=== PATIENT | female | born 1955 | race Caucasian/White ===

== ENCOUNTER 2018-03-24 21:54 | Inpatient (IN) | payer MEDICARE, MEDICAID ==
[~2018-03-24] VITALS: Ht 165.1 cm; Wt 122.7 kg
[2018-03-24] MEDS ORDERED: normal saline 1000ML IV soln IVB ONE (22:05)
[2018-03-24] MEDS ORDERED: normal saline 1000ML IV soln IV ONE (22:10)
[2018-03-24 22:23] LABS: BASOPHILS # (AUTO) 0.1 X10'3 (0-0.2); BASOPHILS % (AUTO) 0.3 % (0-1); EOSINOPHILS % (AUTO) 0 % (0-6); HEMATOCRIT 37.4 % (35.0-45.0); HEMOGLOBIN 12.5 g/dl (12.0-16.0); LYMPHOCYTES # (AUTO) 2.2 X10'3 (1.1-4.8); LYMPHOCYTES % (AUTO) 10.5 % (21-51); MEAN CORPUSCULAR HEMOGLOBIN 27.2 PG (27.0-31.0); MEAN CORPUSCULAR HGB CONC 33.4 % (33.0-36.5); MEAN CORPUSCULAR VOLUME 81.5 FL (78-98); MEAN PLATELET VOLUME 10.5 FL (7.4-10.4); MONOCYTES # (AUTO) 0.8 X10'3 (0-0.9); MONOCYTES % (AUTO) 3.8 % (2-12); NEUTROPHILS # (AUTO) 18.3 X10'3 (1.8-7.7); NEUTROPHILS % (AUTO) 85.4 % (42-75); PLATELET COUNT 261 X10'3 (140-440); RED BLOOD COUNT 4.59 X10'6 (4.20-5.60); RED CELL DISTRIBUTION WIDTH 15.6 % (11.5-14.5); WHITE BLOOD COUNT 21.4 X10'3 (4.5-11.0)
[2018-03-24 22:25] LABS: PARTIAL THROMBOPLASTIN TIME 25 SECONDS (22-32); PROTHROMBIN TIME 10.4 SECONDS (9.0-12.0)
[2018-03-24 22:27] LABS: ALANINE AMINOTRANSFERASE 68 U/L (12-78); ALBUMIN 2.7 G/DL (3.4-5.0); ALBUMIN/GLOBULIN RATIO 0.7 (1.1-1.5); ALKALINE PHOSPHATASE 161 IU/L (46-116); ANION GAP 9 (8-16); ASPARTATE AMINO TRANSFERASE 43 U/L (10-37); BILIRUBIN,TOTAL 0.2 MG/DL (0.1-1.0); BLOOD UREA NITROGEN 26 MG/DL (7-18); CALCIUM 7.4 MG/DL (8.5-10.1); CHLORIDE 108 MMOL/L (99-107); GLUCOSE 156 MG/DL (70-104); POTASSIUM 3.4 MMOL/L (3.5-5.1); SODIUM 143 MMOL/L (135-145); TOTAL CARBON DIOXIDE 26.3 MMOL/L (24-32); TOTAL PROTEIN 6.4 G/DL (6.4-8.2); eGFR 25 ML/MIN
[2018-03-24 22:35] LABS: CLARITY,URINE CLOUDY (Clear); COLOR,URINE YELLOW (Yellow); GLUCOSE, URINE NEGATIVE (Neg); KETONES,URINE NEGATIVE (Neg); LEUKOCYTE ESTERASE ,URINE SMALL (Neg); NITRITES, URINE NEGATIVE (Neg); OCCULT BLOOD,URINE MODERATE (Neg); PH,URINE 5.5 (4.8-8.0); PROTEIN,URINE 30 mg/dl (Neg); UROBILINOGEN,URINE 0.2 E.U/dL (0.2-1.0)
[2018-03-24 22:37] LABS: MAGNESIUM 2.1 MG/DL (1.5-2.4)
[2018-03-24 22:41] LABS: URINE HCG NEGATIVE (NEG)
[2018-03-24 22:47] LABS: UA COLLECTION TYPE FOLEY CATH
[2018-03-24 22:48] LABS: AMORPHOUS URATES 1+; BACTERIA,URINE FEW /HPF (Neg); COARSE GRANULAR CAST 0-3 /LPF (NEGATIVE); HYALINE CASTS 0-3 /LPF (NEGATIVE); MUCUS STRANDS FEW /LPF (Neg); RBC,URINE 0-2 /HPF (0-2); SQUAMOUS EPITHELIAL CELL,UR MODERATE /LPF (FEW)
[2018-03-24] MEDS: meropenem inj 1 GM in normal saline 100ml IV soln 100 ML IV SCH (22:54)
[2018-03-24 23:24] LABS: TOTAL CELLS COUNTED 100
[2018-03-24 23:25] LABS: ANISOCYTOSIS 1+; PLATELET ESTIMATE NORMAL
[2018-03-25] MEDS ORDERED: VERA120T7 PO (00:44)
[2018-03-25] MEDS ORDERED: NITR0.4T51 SL (00:44)
[2018-03-25] MEDS ORDERED: MORP30CA16 PO (00:44)
[2018-03-25] MEDS ORDERED: ALBU8.5H8 INH (00:44)
[2018-03-25] MEDS ORDERED: OXYC-658 PO (00:44)
[2018-03-25] MEDS ORDERED: ESOM20CA PO (00:44)
[2018-03-25] MEDS ORDERED: VALS80TA2 PO (00:44)
[2018-03-25] MEDS ORDERED: ZOC5T PO (00:44)
[2018-03-25] MEDS ORDERED: AZIT-63 PO (00:44)
[2018-03-25] MEDS ORDERED: mag hydrox/Alum hydrox/simeth 30ml oral suspension PO PRN (01:10)
[2018-03-25] MEDS ORDERED: acetaminophen 325mg tablet PO PRN (01:10)
[2018-03-25] MEDS ORDERED: magnesium hydroxide 30ml (MOM) UD suspension PO PRN (01:10)
[2018-03-25] MEDS ORDERED: ondansetron/PF 4mg/2ml inj IV PRN (01:10)
[2018-03-25] MEDS ORDERED: ESCI5TAB PO (01:16)
[2018-03-25] MEDS ORDERED: TOPI25TA49 PO (01:16)
[2018-03-25] MEDS ORDERED: nitroGLYCERIN 0.4mg SUBLingual tab SL PRN (01:25)
[2018-03-25] MEDS ORDERED: albuterol 2.5 MG/3 ML nebule NEB PRN (01:35)
[2018-03-25] MEDS: normal saline 1000ml 1,000 ML IV SCH ×3 (01:58→22:27)
[2018-03-25 02:00] VITALS: BP 91/53
[2018-03-25] MEDS: CefTRIAXone/D5W-Rocephin 1gm 50 ML IV SCH (02:36)
[2018-03-25] MEDS ORDERED: magnesium 1gm/100ml D5W IVPB 100 ML IV PRN (02:50)
[2018-03-25] MEDS ORDERED: magnesium Cl slow-release 64mg tablet PO PRN (02:50)
[2018-03-25] MEDS ORDERED: potassium Cl 20 mEq SR tablet PO PRN (02:50)
[2018-03-25] MEDS ORDERED: magnesium 4gm in 100ml NS 100 ML IV PRN (02:50)
[2018-03-25] MEDS ORDERED: potassium Cl 40MEQ/NS 500ml 500 ML IV PRN ×2 (02:50)
[2018-03-25 03:00] VITALS: BP 107/61
[2018-03-25] MEDS: nystatin 15 GM powder TP SCH ×4 (03:17→22:27)
[2018-03-25] MEDS: potassium Cl 20 mEq SR tablet PO PRN ×3 (03:18→20:51)
[2018-03-25] MEDS ORDERED: pneumococcal 23-VAL P-sac vacc 25 mcg/0.5ml vial IMVAC ONE (06:30)
[2018-03-25] MEDS: pantoprazole 40mg Tablet.DR PO SCH (07:35)
[2018-03-25] MEDS: CITALOpram 10mg tablet PO SCH (07:35)
[2018-03-25] MEDS: heparin, porcine 5000 units/ml vial SQ SCH ×2 (07:36→20:52)
[2018-03-25 08:46] VITALS: BP 108/66
[2018-03-25] MEDS: meropenem inj 1 GM in normal saline 100ml IV soln 100 ML IV SCH ×2 (09:09→15:58)
[2018-03-25 11:00] VITALS: BP 123/63
[2018-03-25 15:12] LABS: ALANINE AMINOTRANSFERASE 44 U/L (12-78); ALBUMIN 2.3 G/DL (3.4-5.0); ALBUMIN/GLOBULIN RATIO 0.7 (1.1-1.5); ALKALINE PHOSPHATASE 143 IU/L (46-116); ANION GAP 5 (8-16); ASPARTATE AMINO TRANSFERASE 24 U/L (10-37); BILIRUBIN,TOTAL 0.2 MG/DL (0.1-1.0); BLOOD UREA NITROGEN 17 MG/DL (7-18); BUN/CREATININE RATIO 16.3 (6.6-38.0); CALCIUM 7.6 MG/DL (8.5-10.1); CHLORIDE 106 MMOL/L (99-107); CREATININE 1.04 MG/DL (0.40-0.90); GLUCOSE 145 MG/DL (70-104); POTASSIUM 3.2 MMOL/L (3.5-5.1); SODIUM 140 MMOL/L (135-145); TOTAL CARBON DIOXIDE 28.6 MMOL/L (24-32); TOTAL PROTEIN 5.8 G/DL (6.4-8.2); eGFR 54 ML/MIN
[2018-03-25 15:31] LABS: BASOPHILS % (AUTO) 0.4 % (0-1); EOSINOPHILS # (AUTO) 0.3 X10'3 (0-0.9); EOSINOPHILS % (AUTO) 4.2 % (0-6); HEMATOCRIT 33.4 % (35.0-45.0); HEMOGLOBIN 11.2 g/dl (12.0-16.0); LYMPHOCYTES # (AUTO) 2.2 X10'3 (1.1-4.8); LYMPHOCYTES % (AUTO) 26.9 % (21-51); MEAN CORPUSCULAR HGB CONC 33.5 % (33.0-36.5); MEAN CORPUSCULAR VOLUME 83.6 FL (78-98); MEAN PLATELET VOLUME 10.6 FL (7.4-10.4); MONOCYTES # (AUTO) 0.6 X10'3 (0-0.9); MONOCYTES % (AUTO) 7.2 % (2-12); NEUTROPHILS % (AUTO) 61.3 % (42-75); PLATELET COUNT 171 X10'3 (140-440); RED CELL DISTRIBUTION WIDTH 14.5 % (11.5-14.5); WHITE BLOOD COUNT 8.1 X10'3 (4.5-11.0)
[2018-03-25 18:00] VITALS: BP 120/72
[2018-03-25] MEDS ORDERED: topiramate 25mg tablet PO SCH (21:00)
[2018-03-25] MEDS ORDERED: atorvastatin 20mg tablet PO SCH (21:00)
[2018-03-25 22:00] VITALS: BP 152/77
[2018-03-26] MEDS: meropenem inj 1 GM in normal saline 100ml IV soln 100 ML IV SCH ×2 (00:11→07:32)
[2018-03-26] MEDS: potassium Cl 20 mEq SR tablet PO PRN ×2 (01:13→05:42)
[2018-03-26] MEDS: CefTRIAXone/D5W-Rocephin 1gm 50 ML IV SCH (02:10)
[2018-03-26 03:00] VITALS: BP 149/86
[2018-03-26 05:52] LABS: BASOPHILS # (AUTO) 0.1 X10'3 (0-0.2); EOSINOPHILS # (AUTO) 0.3 X10'3 (0-0.9); EOSINOPHILS % (AUTO) 6.1 % (0-6); HEMATOCRIT 33.5 % (35.0-45.0); HEMOGLOBIN 11.2 g/dl (12.0-16.0); LYMPHOCYTES # (AUTO) 1.7 X10'3 (1.1-4.8); LYMPHOCYTES % (AUTO) 29.9 % (21-51); MEAN CORPUSCULAR HEMOGLOBIN 27.1 PG (27.0-31.0); MEAN CORPUSCULAR HGB CONC 33.4 % (33.0-36.5); MEAN CORPUSCULAR VOLUME 81.2 FL (78-98); MEAN PLATELET VOLUME 10.9 FL (7.4-10.4); MONOCYTES # (AUTO) 0.5 X10'3 (0-0.9); MONOCYTES % (AUTO) 8.3 % (2-12); NEUTROPHILS % (AUTO) 54.7 % (42-75); PLATELET COUNT 142 X10'3 (140-440); RED BLOOD COUNT 4.13 X10'6 (4.20-5.60); RED CELL DISTRIBUTION WIDTH 14.8 % (11.5-14.5); WHITE BLOOD COUNT 5.5 X10'3 (4.5-11.0)
[2018-03-26 06:11] LABS: ALANINE AMINOTRANSFERASE 41 U/L (12-78); ALBUMIN 2.2 G/DL (3.4-5.0); ALBUMIN/GLOBULIN RATIO 0.6 (1.1-1.5); ALKALINE PHOSPHATASE 133 IU/L (46-116); ANION GAP 6 (8-16); ASPARTATE AMINO TRANSFERASE 16 U/L (10-37); BILIRUBIN,TOTAL 0.1 MG/DL (0.1-1.0); BLOOD UREA NITROGEN 13 MG/DL (7-18); BUN/CREATININE RATIO 13.3 (6.6-38.0); CALCIUM 7.6 MG/DL (8.5-10.1); CHLORIDE 107 MMOL/L (99-107); CREATININE 0.98 MG/DL (0.40-0.90); GLUCOSE 127 MG/DL (70-104); MAGNESIUM 1.8 MG/DL (1.5-2.4); POTASSIUM 3.3 MMOL/L (3.5-5.1); SODIUM 140 MMOL/L (135-145); TOTAL CARBON DIOXIDE 26.9 MMOL/L (24-32); TOTAL PROTEIN 5.7 G/DL (6.4-8.2); eGFR 57 ML/MIN
[2018-03-26 06:51] VITALS: BP 156/93
[2018-03-26] MEDS: normal saline 1000ml 1,000 ML IV SCH ×2 (07:08→10:43)
[2018-03-26 07:14] LABS: LARGE PLATELETS FEW; PLATELET ESTIMATE DECREASED
[2018-03-26] MEDS: pantoprazole 40mg Tablet.DR PO SCH (07:31)
[2018-03-26] MEDS: heparin, porcine 5000 units/ml vial SQ SCH (07:32)
[2018-03-26] MEDS: nystatin 15 GM powder TP SCH ×2 (07:32→12:25)
[2018-03-26] MEDS: CITALOpram 10mg tablet PO SCH (07:32)
[2018-03-26 11:00] VITALS: BP 154/89
[2018-03-26] MEDS ORDERED: CEFD300C3 PO (12:15)
[2018-03-26 15:00] VITALS: BP 153/93
[2018-03-26 19:00] VITALS: BP 148/88
[2018-03-26] MEDS ORDERED: lactobacillus rhamnosus 10,000 MMU CELLS/CAPSULE PO SCH (20:00)
== END 2018-03-26 21:01 | disposition home health service (06) | DRG 871 ==
LOC: ER 21:55 → ED HOLD 03-25 01:08 → PCU 3S 03-25 02:10
PROVIDERS: ADMIT Internal Medicine; ATTEND Family Medicine
PROC: 3E0234Z Introduction of Serum, Toxoid and Vaccine into Muscle, Percutaneous Approach (ICD-10-PCS; principal; 2018-03-25)
DX: A41.9 Sepsis, unspecified organism (principal); G92 Toxic encephalopathy; N17.0 Acute kidney failure with tubular necrosis; T40.2X1A Poisoning by other opioids, accidental (unintentional), initial encounter; F11.10 Opioid abuse, uncomplicated; E78.00 Pure hypercholesterolemia, unspecified; G35 Multiple sclerosis; G89.29 Other chronic pain; F32.9 Major depressive disorder, single episode, unspecified; E87.6 Hypokalemia; E03.9 Hypothyroidism, unspecified; E78.5 Hyperlipidemia, unspecified; I10 Essential (primary) hypertension; J45.909 Unspecified asthma, uncomplicated; Z96.651 Presence of right artificial knee joint; Z88.0 Allergy status to penicillin; Z88.1 Allergy status to other antibiotic agents; Z88.6 Allergy status to analgesic agent; Z88.8 Allergy status to other drugs, medicaments and biological substances; Z79.899 Other long term (current) drug therapy; Z23 Encounter for immunization; Y92.89 Other specified places as the place of occurrence of the external cause
CPT/HCPCS: 36415; 71045; 71250; 74176; 80053; 81001; 81025; 83605; 83735; 84145; 84443; 85025; 85610; 85730; 87040; 87070; 87088; 90471; 90732; 93005; 96360; 97110; 97162; 97530; 99291; J0696; J1644; J2185; J7030

== ENCOUNTER 2024-06-07 19:19 | Emergency (ER) | payer BC, MEDICAID ==
[~2024-06-07] VITALS: Ht 162.6 cm; Wt 123.2 kg
[~2024-06-07 19:19] MED LIST: ALBU8.5H17 INH; ESCI5TAB PO; ESOM20CA PO; MORP30CA16 PO; NITR0.4T51 SL; OXYC-658 PO; SIMV5TAB58 PO; TOPI25TA49 PO
[2024-06-07 20:09] LABS: BASOPHILS % (AUTO) 0.1 % (0-1); EOSINOPHILS # (AUTO) 0.2 X10'3 (0-0.9); EOSINOPHILS % (AUTO) 2.8 % (0-6); HEMOGLOBIN 11.4 g/dl (12.0-16.0); LYMPHOCYTES # (AUTO) 0.3 X10'3 (1.1-4.8); LYMPHOCYTES % (AUTO) 3.9 % (21-51); MEAN CORPUSCULAR HEMOGLOBIN 24.7 PG (27.0-31.0); MEAN CORPUSCULAR HGB CONC 31.6 g/dL (33.0-36.5); MEAN CORPUSCULAR VOLUME 78.1 FL (78-98); MEAN PLATELET VOLUME 9.2 FL (7.4-10.4); MONOCYTES # (AUTO) 0.5 X10'3 (0-0.9); MONOCYTES % (AUTO) 8.3 % (2-12); NEUTROPHILS # (AUTO) 5.5 X10'3 (1.8-7.7); NEUTROPHILS % (AUTO) 84.9 % (42-75); PLATELET COUNT 205 X10'3 (140-440); RED BLOOD COUNT 4.61 X10'6 (4.20-5.60); RED CELL DISTRIBUTION WIDTH 16.7 % (11.5-14.5); WHITE BLOOD COUNT 6.5 X10'3 (4.5-11.0)
[2024-06-07 20:17] LABS: ALANINE AMINOTRANSFERASE 69 U/L (12-78); ALBUMIN 3.3 G/DL (3.4-5.0); ALBUMIN/GLOBULIN RATIO 0.8 (1.1-1.5); ALKALINE PHOSPHATASE 217 IU/L (46-116); ANION GAP 9 (8-16); ASPARTATE AMINO TRANSFERASE 54 U/L (10-37); BILIRUBIN,TOTAL 0.3 MG/DL (0.1-1.0); BLOOD UREA NITROGEN 11 MG/DL (7-18); BUN/CREATININE RATIO 11.5 (10.0-20.0); CALCIUM 8.7 MG/DL (8.5-10.1); CHLORIDE 94 MMOL/L (99-107); CREATININE 0.96 MG/DL (0.40-0.90); GLUCOSE 389 MG/DL (70-104); POTASSIUM 3.8 MMOL/L (3.5-5.1); SODIUM 136 MMOL/L (135-145); TOTAL CARBON DIOXIDE 33.1 MMOL/L (24-32); TOTAL PROTEIN 7.3 G/DL (6.4-8.2); eCRCL 48 ML/MIN; eGFR 58 ML/MIN
[2024-06-07 20:25] LABS: PRO BRAIN NATRIURETIC PEPTIDE 87 PG/ML (0-125)
[2024-06-07 20:42] LABS: D-DIMER 0.54 MG/L FEU (0-0.50)
[2024-06-07] MEDS: insulin regular, human 10 units/0.1 ml syringe SQ ONE (20:42)
[2024-06-07] MEDS ORDERED: iohexol 350MG/ML 100ml bottle IV ONE (21:24)
[2024-06-07 23:19] LABS: BILIRUBIN,URINE NEGATIVE (Neg); CLARITY,URINE CLOUDY (Clear); COLOR,URINE YELLOW (Yellow); GLUCOSE, URINE >=1000 mg/dl (Neg); KETONES,URINE NEGATIVE (Neg); LEUKOCYTE ESTERASE ,URINE NEGATIVE (Neg); NITRITES, URINE POSITIVE (Neg); OCCULT BLOOD,URINE NEGATIVE (Neg); PH,URINE 6.5 (4.8-8.0); PROTEIN,URINE NEGATIVE (Neg); UROBILINOGEN,URINE 0.2 E.U/dL (0.2-1.0)
[2024-06-07 23:20] LABS: UA COLLECTION TYPE NON-SPECIFIED
[2024-06-07] MEDS: HYDROcodone/acetaminophen 10/325mg tab PO ONE (23:23)
[2024-06-07 23:25] LABS: BACTERIA,URINE 3+ /HPF (Neg); RBC,URINE 0-2 /HPF (0-2); SQUAMOUS EPITHELIAL CELL,UR FEW /LPF (FEW); WBC,URINE 0-4 /HPF (0-4)
[2024-06-07] MEDS ORDERED: CEFU250T95 PO (23:34)
[2024-06-07] MEDS: CefTRIAXone/D5W-Rocephin 1gm 50 ML IV ONE (23:38)
[2024-06-08 00:06] VITALS: BP 168/96; PULSE 87; RESP 18; TEMP 98.9; O2SAT 100
== END 2024-06-07 23:58 | disposition home or self-care (01) ==
LOC: ER 19:20
DX: E11.65 Type 2 diabetes mellitus with hyperglycemia (principal); E78.00 Pure hypercholesterolemia, unspecified; G89.29 Other chronic pain; M54.9 Dorsalgia, unspecified; J45.909 Unspecified asthma, uncomplicated; M19.90 Unspecified osteoarthritis, unspecified site; I25.2 Old myocardial infarction; N39.0 Urinary tract infection, site not specified; B97.89 Other viral agents as the cause of diseases classified elsewhere; J12.9 Viral pneumonia, unspecified; I10 Essential (primary) hypertension; Z88.0 Allergy status to penicillin; Z88.8 Allergy status to other drugs, medicaments and biological substances; Z79.899 Other long term (current) drug therapy; Z98.890 Other specified postprocedural states; Z20.822 Contact with and (suspected) exposure to COVID-19
CPT/HCPCS: 36415; 71045; 71275; 80053; 81001; 82948; 83880; 84145; 84484; 85025; 85379; 87077; 87088; 87186; 87811; 93005; 96365; 96372; 99285; J0696; J1815; Q9967; A4615

== ENCOUNTER 2024-11-25 20:59 | Emergency (ER) | payer MEDICARE, MEDICAID ==
[~2024-11-25] VITALS: Ht 162.6 cm; Wt 113.2 kg
[~2024-11-25 20:59] MED LIST changes: +CLOP75TA34 PO; -ESOM20CA PO; -NITR0.4T51 SL; -TOPI25TA49 PO; +[UNRECOGNIZED DRUG - CODE] PO
[2024-11-25] MEDS: phenylephrine 1% (X-tra strg) 15ml nasal spray NS ONE (23:47)
[2024-11-25 23:53] VITALS: BP 128/62; PULSE 70; RESP 18; TEMP 98.6; O2SAT 99
== END 2024-11-25 23:55 | disposition home or self-care (01) ==
LOC: ER 21:00
DX: R04.0 Epistaxis (principal); E78.00 Pure hypercholesterolemia, unspecified; E11.9 Type 2 diabetes mellitus without complications; I25.2 Old myocardial infarction; I10 Essential (primary) hypertension; M19.90 Unspecified osteoarthritis, unspecified site; G89.29 Other chronic pain; M54.9 Dorsalgia, unspecified; J44.9 Chronic obstructive pulmonary disease, unspecified; J45.909 Unspecified asthma, uncomplicated; Z88.0 Allergy status to penicillin; Z88.6 Allergy status to analgesic agent; Z88.5 Allergy status to narcotic agent; Z88.8 Allergy status to other drugs, medicaments and biological substances; Z98.890 Other specified postprocedural states
CPT/HCPCS: 99284; A6402; A6449

== ENCOUNTER 2024-11-26 23:46 | Inpatient (IN) | payer MEDICARE, MEDICAID ==
[~2024-11-26] VITALS: Ht 162.6 cm; Wt 118.8 kg
[2024-11-27] VITALS (11 sets, daily range): BP systolic 102–173; BP diastolic 58–89; PULSE 72–99; RESP 16–27; TEMP 97.5–98.6; O2SAT 95–100
[2024-11-27 00:15] LABS: BASOPHILS % (AUTO) 0.3 % (0-1); EOSINOPHILS # (AUTO) 0.2 X10'3 (0-0.9); HEMATOCRIT 24.5 % (35.0-45.0); HEMOGLOBIN 7.9 g/dl (12.0-16.0); LYMPHOCYTES # (AUTO) 0.8 X10'3 (1.1-4.8); LYMPHOCYTES % (AUTO) 6.9 % (21-51); MEAN CORPUSCULAR HEMOGLOBIN 25.3 PG (27.0-31.0); MEAN CORPUSCULAR HGB CONC 32.3 g/dL (33.0-36.5); MEAN CORPUSCULAR VOLUME 78.3 FL (78-98); MEAN PLATELET VOLUME 9.7 FL (7.4-10.4); MONOCYTES # (AUTO) 0.7 X10'3 (0-0.9); MONOCYTES % (AUTO) 6.5 % (2-12); NEUTROPHILS # (AUTO) 9.7 X10'3 (1.8-7.7); NEUTROPHILS % (AUTO) 84.3 % (42-75); PLATELET COUNT 276 X10'3 (140-440); RED BLOOD COUNT 3.13 X10'6 (4.20-5.60); RED CELL DISTRIBUTION WIDTH 17.2 % (11.5-14.5); WHITE BLOOD COUNT 11.5 X10'3 (4.5-11.0)
[2024-11-27] MEDS ORDERED: AMIT25TA10 PO (00:32)
[2024-11-27] MEDS ORDERED: MIRA50TA PO (00:32)
[2024-11-27] MEDS ORDERED: LYR25C PO (00:32)
[2024-11-27] MEDS ORDERED: AMLO2.5T2 PO (00:32)
[2024-11-27] MEDS ORDERED: METF-436 PO (00:32)
[2024-11-27] MEDS ORDERED: ISOS30TA84 PO (00:32)
[2024-11-27] MEDS ORDERED: ACYC-129 PO (00:32)
[2024-11-27] MEDS ORDERED: DULA0.75 SUBCUT (00:32)
[2024-11-27] MEDS ORDERED: ROSU10TA72 PO (00:32)
[2024-11-27 00:33] LABS: CHLORIDE 101 MMOL/L (99-107); POTASSIUM 3.1 MMOL/L (3.5-5.1); SODIUM 141 MMOL/L (135-145)
[2024-11-27 00:39] LABS: INR 1.1 INR; PROTHROMBIN TIME 11.5 SECONDS (9.0-12.0)
[2024-11-27 00:42] LABS: APTT 23 SECONDS (22-32)
[2024-11-27] MEDS: normal saline 1000ml 1,000 ML IV ONE ×2 (00:58→01:57)
[2024-11-27] MEDS: magnesium sulf-water 2g/50mL 50 ML IV ONE (00:58)
[2024-11-27 01:10] LABS: ALBUMIN 2.8 G/DL (3.4-5.0); ANION GAP 14 (8-16); BLOOD UREA NITROGEN 38 MG/DL (7-18); BUN/CREATININE RATIO 34.5 (10.0-20.0); CALCIUM 8.5 MG/DL (8.5-10.1); GLUCOSE 267 MG/DL (70-104); TOTAL CARBON DIOXIDE 26.4 MMOL/L (24-32); eCRCL 42 ML/MIN; eGFR 49 ML/MIN
[2024-11-27 02:35] LABS: MAGNESIUM 2.1 MG/DL (1.5-2.4)
[2024-11-27] MEDS ORDERED: magnesium hydroxide 30ml (MOM) UD suspension PO PRN (03:15)
[2024-11-27] MEDS ORDERED: ondansetron/PF 4mg/2ml inj IV PRN (03:15)
[2024-11-27] MEDS ORDERED: magnesium Cl slow-release 64mg tablet PO PRN (03:15)
[2024-11-27] MEDS ORDERED: acetaminophen 325mg tablet PO PRN (03:15)
[2024-11-27] MEDS ORDERED: HYDROcodone/acetaminophen 10/325mg tab PO PRN (03:15)
[2024-11-27] MEDS ORDERED: magnesium sulf-water 2g/50mL 50 ML IV PRN (03:15)
[2024-11-27] MEDS ORDERED: potassium Cl 40MEQ/1/2NS 520ml 520 ML IV PRN (03:15)
[2024-11-27] MEDS ORDERED: mag hydrox/Alum hydrox/simeth 30ml oral suspension PO PRN (03:15)
[2024-11-27] MEDS ORDERED: potassium Cl 20 mEq SR tablet PO PRN ×2 (03:15)
[2024-11-27] MEDS ORDERED: HYDROcodone/acetaminophen 5mg/325mg tablet PO PRN (03:15)
[2024-11-27] MEDS ORDERED: magnesium sulf-water 4G/100mL 100 ML IV PRN (03:15)
[2024-11-27] MEDS: potassium Cl 40MEQ/1/2NS 520ml 520 ML IV SCH (03:38)
[2024-11-27] MEDS ORDERED: dextrose 50%-water 50ml dispensing syringe IV PRN (03:55)
[2024-11-27] MEDS ORDERED: glucagon, human recombinant 1mg kit SUBCUT PRN (03:55)
[2024-11-27] MEDS ORDERED: DEXTROSE 15 GM of carb/4 tabs (each vial/BOTTLE has 4 tablets) PO PRN ×2 (03:55)
[2024-11-27 04:07] LABS: % IRON SATURATION 20 % (11-46); IRON 66 UG/DL (49-151); TOTAL IRON BINDING CAPACITY 335 UG/DL (259-388)
[2024-11-27 04:17] LABS: CREATINE KINASE 26 U/L (26-192); PHOSPHORUS 3.4 MG/DL (2.3-4.5); POTASSIUM 4.2 MMOL/L (3.5-5.1)
[2024-11-27 04:19] LABS: FERRITIN 32 NG/ML (8-252)
[2024-11-27] MEDS: normal saline 1000ml 1,000 ML IV SCH (04:24)
[2024-11-27] MEDS: pantoprazole 40 MG vial IV ONE (04:24)
[2024-11-27 07:23] LABS: BILIRUBIN,URINE NEGATIVE (Neg); CLARITY,URINE SLIGHTLY CLOUDY (Clear); COLOR,URINE YELLOW (Yellow); GLUCOSE, URINE NEGATIVE (Neg); KETONES,URINE NEGATIVE (Neg); LEUKOCYTE ESTERASE ,URINE TRACE (Neg); NITRITES, URINE POSITIVE (Neg); OCCULT BLOOD,URINE NEGATIVE (Neg); PROTEIN,URINE NEGATIVE (Neg); UROBILINOGEN,URINE 0.2 E.U/dL (0.2-1.0)
[2024-11-27] MEDS: INSULIN LISPRO 100 UNIT/ML INSULN.PEN MULTI-DOSE SQ SCH ×2 (07:23→09:25)
[2024-11-27 07:30] LABS: UA COLLECTION TYPE VOIDED
[2024-11-27 07:32] LABS: BACTERIA,URINE 4+ /HPF (Neg); MUCUS STRANDS NONE SEEN /LPF (Neg); RBC,URINE NONE SEEN /HPF (0-2); SQUAMOUS EPITHELIAL CELL,UR FEW /LPF (FEW)
[2024-11-27] MEDS: CefTRIAXone/D5W-Rocephin 1gm 50 ML IV ONE (07:55)
[2024-11-27] MEDS ORDERED: insulin regular, human U-100 10ml vial - multi-dose SQ SCH (08:00)
[2024-11-27] MEDS: K and/or MAG REPLACEMENT MC SCH (08:00)
[2024-11-27] MEDS: docusate sod 100mg capsule PO SCH (08:00)
[2024-11-27 08:32] LABS: BASOPHILS % (AUTO) 0.3 % (0-1); EOSINOPHILS # (AUTO) 0.1 X10'3 (0-0.9); EOSINOPHILS % (AUTO) 0.7 % (0-6); HEMATOCRIT 22.5 % (35.0-45.0); HEMOGLOBIN 7.2 g/dl (12.0-16.0); LYMPHOCYTES # (AUTO) 0.6 X10'3 (1.1-4.8); LYMPHOCYTES % (AUTO) 6.5 % (21-51); MEAN CORPUSCULAR HEMOGLOBIN 25.2 PG (27.0-31.0); MEAN CORPUSCULAR HGB CONC 32.2 g/dL (33.0-36.5); MEAN CORPUSCULAR VOLUME 78.1 FL (78-98); MEAN PLATELET VOLUME 9.1 FL (7.4-10.4); MONOCYTES # (AUTO) 0.9 X10'3 (0-0.9); MONOCYTES % (AUTO) 9.7 % (2-12); NEUTROPHILS # (AUTO) 7.8 X10'3 (1.8-7.7); NEUTROPHILS % (AUTO) 82.8 % (42-75); PLATELET COUNT 236 X10'3 (140-440); RED BLOOD COUNT 2.88 X10'6 (4.20-5.60); RED CELL DISTRIBUTION WIDTH 17.6 % (11.5-14.5); WHITE BLOOD COUNT 9.4 X10'3 (4.5-11.0)
[2024-11-27 08:47] LABS: ALANINE AMINOTRANSFERASE 37 U/L (12-78); ALBUMIN 2.7 G/DL (3.4-5.0); ALBUMIN/GLOBULIN RATIO 0.8 (1.1-1.5); ALKALINE PHOSPHATASE 122 IU/L (46-116); ANION GAP 5 (8-16); ASPARTATE AMINO TRANSFERASE 30 U/L (10-37); BILIRUBIN,TOTAL 0.2 MG/DL (0.1-1.0); BLOOD UREA NITROGEN 31 MG/DL (7-18); BUN/CREATININE RATIO 41.9 (10.0-20.0); CALCIUM 7.9 MG/DL (8.5-10.1); CHLORIDE 106 MMOL/L (99-107); CREATININE 0.74 MG/DL (0.40-0.90); GLUCOSE 140 MG/DL (70-104); SODIUM 141 MMOL/L (135-145); TOTAL CARBON DIOXIDE 29.9 MMOL/L (24-32); eCRCL 62 ML/MIN; eGFR 78 ML/MIN
[2024-11-27] MEDS: CefTRIAXone/D5W-Rocephin 1gm 50 ML IV SCH (10:17)
[2024-11-27] MEDS: heparin, porcine 5000 units/ml vial SQ SCH (10:18)
[2024-11-27] MEDS: FLU VACC TS2024-25(6MOS UP)/PF 45 MCG/0.5 ML SYRINGE IMVAC ONE (11:34)
[2024-11-27 14:25] LABS: MEAN CORPUSCULAR HEMOGLOBIN 25.4 PG (27.0-31.0); MEAN CORPUSCULAR HGB CONC 32.3 g/dL (33.0-36.5); MEAN CORPUSCULAR VOLUME 78.7 FL (78-98); MEAN PLATELET VOLUME 9.4 FL (7.4-10.4); PLATELET COUNT 240 X10'3 (140-440); RED BLOOD COUNT 2.71 X10'6 (4.20-5.60); RED CELL DISTRIBUTION WIDTH 17.7 % (11.5-14.5); WHITE BLOOD COUNT 8.5 X10'3 (4.5-11.0)
[2024-11-27 14:29] LABS: HEMATOCRIT 21.4 % (35.0-45.0); HEMOGLOBIN 6.9 g/dl (12.0-16.0)
[2024-11-27] MEDS: pantoprazole 40MG/NS 100ML BAG 100 ML IV SCH (21:00)
[2024-11-27] MEDS: insulin glargine (Lantus) pen - multi-dose SQ SCH (22:14)
[2024-11-28] VITALS (16 sets, daily range): BP systolic 105–194; BP diastolic 57–90; PULSE 78–87; RESP 16–24; TEMP 97.1–97.9; O2SAT 94–100
[2024-11-28 05:53] LABS: ALBUMIN 2.6 G/DL (3.4-5.0); ANION GAP 7 (8-16); BASOPHILS % (AUTO) 0.4 % (0-1); BLOOD UREA NITROGEN 18 MG/DL (7-18); BUN/CREATININE RATIO 23.1 (10.0-20.0); CALCIUM 8.3 MG/DL (8.5-10.1); CHLORIDE 105 MMOL/L (99-107); CHOL/HDL RATIO 3.9 (0.00-4.99); CHOLESTEROL 105 MG/DL (0-200); CREATININE 0.78 MG/DL (0.40-0.90); EOSINOPHILS # (AUTO) 0.3 X10'3 (0-0.9); GLUCOSE 203 MG/DL (70-104); HDL CHOLESTEROL 27 MG/DL (35-60); HEMATOCRIT 23.7 % (35.0-45.0); HEMOGLOBIN 7.8 g/dl (12.0-16.0); LDL CHOLESTEROL 62 MG/DL (50-100); LYMPHOCYTES # (AUTO) 0.4 X10'3 (1.1-4.8); LYMPHOCYTES % (AUTO) 5.6 % (21-51); MAGNESIUM 1.8 MG/DL (1.5-2.4); MEAN CORPUSCULAR HEMOGLOBIN 25.9 PG (27.0-31.0); MEAN CORPUSCULAR HGB CONC 32.8 g/dL (33.0-36.5); MEAN PLATELET VOLUME 9.4 FL (7.4-10.4); MONOCYTES # (AUTO) 0.6 X10'3 (0-0.9); MONOCYTES % (AUTO) 8.9 % (2-12); NEUTROPHILS # (AUTO) 5.3 X10'3 (1.8-7.7); NEUTROPHILS % (AUTO) 81.1 % (42-75); PHOSPHORUS 3.5 MG/DL (2.3-4.5); PLATELET COUNT 185 X10'3 (140-440); POTASSIUM 3.9 MMOL/L (3.5-5.1); RED CELL DISTRIBUTION WIDTH 16.8 % (11.5-14.5); SODIUM 143 MMOL/L (135-145); TOTAL CARBON DIOXIDE 30.6 MMOL/L (24-32); TRIGLYCERIDES 110 MG/DL (20-135); WHITE BLOOD COUNT 6.5 X10'3 (4.5-11.0); eCRCL 59 ML/MIN; eGFR 73 ML/MIN
[2024-11-28] MEDS ORDERED: fentaNYL/PF 50MCG/1 ML 2ML syringe ONE (12:49)
[2024-11-28] MEDS ORDERED: LIDOcaine 2% Viscous 15ml cup ONE (12:49)
[2024-11-28] MEDS ORDERED: MIDAZolam 1 MG/ML 5ML VIAL ONE (12:49)
[2024-11-28] MEDS ORDERED: simethicone 40mg/0.6ml oral drops 30ml ONE (13:11)
[2024-11-28] MEDS: amitriptyline 50mg tablet PO SCH (21:34)
[2024-11-28] MEDS: atorvastatin 20mg tablet PO SCH (21:38)
[2024-11-28] MEDS: pregabalin 25mg capsule PO SCH (21:38)
[2024-11-29] VITALS (9 sets, daily range): BP systolic 129–169; BP diastolic 67–94; PULSE 79–89; RESP 13–29; TEMP 97.6–98.4; O2SAT 96–99
[2024-11-29 06:12] LABS: BASOPHILS % (AUTO) 0.5 % (0-1); EOSINOPHILS # (AUTO) 0.4 X10'3 (0-0.9); EOSINOPHILS % (AUTO) 6.3 % (0-6); HEMATOCRIT 24.4 % (35.0-45.0); HEMOGLOBIN 7.9 g/dl (12.0-16.0); LYMPHOCYTES # (AUTO) 0.4 X10'3 (1.1-4.8); LYMPHOCYTES % (AUTO) 6.8 % (21-51); MEAN CORPUSCULAR HEMOGLOBIN 26.1 PG (27.0-31.0); MEAN CORPUSCULAR HGB CONC 32.6 g/dL (33.0-36.5); MEAN CORPUSCULAR VOLUME 79.9 FL (78-98); MEAN PLATELET VOLUME 9.6 FL (7.4-10.4); MONOCYTES # (AUTO) 0.6 X10'3 (0-0.9); MONOCYTES % (AUTO) 9.6 % (2-12); NEUTROPHILS % (AUTO) 76.8 % (42-75); PLATELET COUNT 186 X10'3 (140-440); RED BLOOD COUNT 3.05 X10'6 (4.20-5.60); RED CELL DISTRIBUTION WIDTH 17.6 % (11.5-14.5); WHITE BLOOD COUNT 6.5 X10'3 (4.5-11.0)
[2024-11-29 06:34] LABS: ALBUMIN 2.9 G/DL (3.4-5.0); ANION GAP 5 (8-16); BLOOD UREA NITROGEN 14 MG/DL (7-18); BUN/CREATININE RATIO 20.9 (10.0-20.0); CALCIUM 8.7 MG/DL (8.5-10.1); CHLORIDE 103 MMOL/L (99-107); CREATININE 0.67 MG/DL (0.40-0.90); GLUCOSE 147 MG/DL (70-104); MAGNESIUM 1.9 MG/DL (1.5-2.4); PHOSPHORUS 3.9 MG/DL (2.3-4.5); POTASSIUM 3.6 MMOL/L (3.5-5.1); SODIUM 140 MMOL/L (135-145); TOTAL CARBON DIOXIDE 32.5 MMOL/L (24-32); eCRCL 68 ML/MIN; eGFR 87 ML/MIN
[2024-11-29] MEDS: ESCITALOPRAM 10 mg tablet 10 MG TABLET PO SCH (07:46)
[2024-11-29] MEDS: isosorbide mononitrate 30mg tab.SR.24H PO SCH (07:47)
[2024-11-29] MEDS: amLODIPine 2.5mg tablet PO SCH (07:49)
[2024-11-29] MEDS: meclizine 12.5mg tablet PO PRN (12:36)
[2024-11-29] MEDS: ipratropium/albuterol 3ml nebule NEB PRN (15:14)
[2024-11-30] VITALS (12 sets, daily range): BP systolic 106–179; BP diastolic 73–99; PULSE 65–119; RESP 14–26; TEMP 97.5–97.9; O2SAT 94–99
[2024-11-30] MEDS: racepinephrine 11.25mg/0.5ml nebule IH ONE (05:34)
[2024-11-30] MEDS: tranexamic acid 100mg/ml inj. NAS ONE (06:04)
[2024-11-30 06:21] LABS: BASOPHILS % (AUTO) 0.6 % (0-1); EOSINOPHILS # (AUTO) 0.4 X10'3 (0-0.9); EOSINOPHILS % (AUTO) 4.8 % (0-6); HEMOGLOBIN 8.1 g/dl (12.0-16.0); LYMPHOCYTES # (AUTO) 0.5 X10'3 (1.1-4.8); MEAN CORPUSCULAR HGB CONC 32.5 g/dL (33.0-36.5); MEAN CORPUSCULAR VOLUME 79.9 FL (78-98); MEAN PLATELET VOLUME 9.8 FL (7.4-10.4); MONOCYTES # (AUTO) 0.8 X10'3 (0-0.9); MONOCYTES % (AUTO) 9.8 % (2-12); NEUTROPHILS # (AUTO) 6.1 X10'3 (1.8-7.7); NEUTROPHILS % (AUTO) 77.8 % (42-75); PLATELET COUNT 228 X10'3 (140-440); RED BLOOD COUNT 3.13 X10'6 (4.20-5.60); RED CELL DISTRIBUTION WIDTH 18.1 % (11.5-14.5); WHITE BLOOD COUNT 7.8 X10'3 (4.5-11.0)
[2024-11-30 06:36] LABS: ANION GAP 6 (8-16); BLOOD UREA NITROGEN 13 MG/DL (7-18); BUN/CREATININE RATIO 19.1 (10.0-20.0); CALCIUM 8.9 MG/DL (8.5-10.1); CHLORIDE 101 MMOL/L (99-107); CREATININE 0.68 MG/DL (0.40-0.90); GLUCOSE 148 MG/DL (70-104); PHOSPHORUS 4.6 MG/DL (2.3-4.5); POTASSIUM 3.6 MMOL/L (3.5-5.1); SODIUM 141 MMOL/L (135-145); eCRCL 67 ML/MIN; eGFR 86 ML/MIN
[2024-11-30] MEDS: tranexamic acid 1gm/0.7% sal. 100 ML IV ONE ×2 (06:51→08:06)
[2024-11-30] MEDS: acetaminophen 325mg tablet PO PRN (14:21)
[2024-11-30] MEDS: diazepam inj 5 MG/ML inj. IV ONE (20:05)
[2024-12-01 02:00] VITALS: BP 176/82; PULSE 85; RESP 16; TEMP 97.6; O2SAT 100
[2024-12-01 06:00] VITALS: BP 169/82; PULSE 85; RESP 14; TEMP 97.7; O2SAT 99
[2024-12-01 07:14] LABS: BASOPHILS % (AUTO) 0.5 % (0-1); EOSINOPHILS # (AUTO) 0.3 X10'3 (0-0.9); EOSINOPHILS % (AUTO) 3.9 % (0-6); HEMATOCRIT 23.7 % (35.0-45.0); HEMOGLOBIN 7.7 g/dl (12.0-16.0); LYMPHOCYTES # (AUTO) 0.3 X10'3 (1.1-4.8); LYMPHOCYTES % (AUTO) 4.1 % (21-51); MEAN CORPUSCULAR HEMOGLOBIN 25.9 PG (27.0-31.0); MEAN CORPUSCULAR HGB CONC 32.4 g/dL (33.0-36.5); MEAN PLATELET VOLUME 9.5 FL (7.4-10.4); MONOCYTES # (AUTO) 0.6 X10'3 (0-0.9); MONOCYTES % (AUTO) 9.2 % (2-12); NEUTROPHILS # (AUTO) 5.4 X10'3 (1.8-7.7); NEUTROPHILS % (AUTO) 82.3 % (42-75); PLATELET COUNT 194 X10'3 (140-440); RED BLOOD COUNT 2.96 X10'6 (4.20-5.60); WHITE BLOOD COUNT 6.6 X10'3 (4.5-11.0)
[2024-12-01 07:45] LABS: ALBUMIN 2.9 G/DL (3.4-5.0); ANION GAP 6 (8-16); BLOOD UREA NITROGEN 12 MG/DL (7-18); CALCIUM 8.7 MG/DL (8.5-10.1); CHLORIDE 101 MMOL/L (99-107); GLUCOSE 165 MG/DL (70-104); MAGNESIUM 2.1 MG/DL (1.5-2.4); PHOSPHORUS 4.4 MG/DL (2.3-4.5); POTASSIUM 3.5 MMOL/L (3.5-5.1); SODIUM 140 MMOL/L (135-145); TOTAL CARBON DIOXIDE 32.9 MMOL/L (24-32); eCRCL 92 ML/MIN; eGFR > 90 ML/MIN
[2024-12-01 08:00] VITALS: BP_SYST 116; BP_SYST 142; BP_SYST 159; BP_DIAS 65; BP_DIAS 79; BP_DIAS 86; PULSE 86; RESP 14; O2SAT 99
[2024-12-01] MEDS ORDERED: hydrALAZINE 20mg/ml inj. IV PRN (08:35)
[2024-12-01 11:00] VITALS: BP 159/86; PULSE 86; RESP 21; TEMP 97.8; O2SAT 86
[2024-12-01] MEDS ORDERED: AMLO2.5T2 PO (11:58)
== END 2024-12-01 16:17 | DRG 811 ==
LOC: ER 23:46 → UNDOADMIN 11-27 03:22 → ED HOLD 11-27 03:22 → PCU 3S 11-27 17:31
PROVIDERS: ADMIT Internal Medicine; ATTEND Family Medicine
PROC: 30233N1 Transfusion of Nonautologous Red Blood Cells into Peripheral Vein, Percutaneous Approach (ICD-10-PCS; principal; 2024-11-27)
PROC: 4A00X4Z Measurement of Central Nervous Electrical Activity, External Approach (ICD-10-PCS; 2024-11-27)
PROC: 0DB68ZX Excision of Stomach, Via Natural or Artificial Opening Endoscopic, Diagnostic (ICD-10-PCS; 2024-11-28)
DX: D64.9 Anemia, unspecified (principal); N17.0 Acute kidney failure with tubular necrosis; E87.20 Acidosis, unspecified; Z68.42 Body mass index [BMI] 45.0-49.9, adult; J96.11 Chronic respiratory failure with hypoxia; I95.1 Orthostatic hypotension; R04.0 Epistaxis; E78.00 Pure hypercholesterolemia, unspecified; G35 Multiple sclerosis; G43.909 Migraine, unspecified, not intractable, without status migrainosus; G89.4 Chronic pain syndrome; J44.89 Other specified chronic obstructive pulmonary disease; M54.9 Dorsalgia, unspecified; I25.10 Atherosclerotic heart disease of native coronary artery without angina pectoris; N18.30 Chronic kidney disease, stage 3 unspecified; E11.22 Type 2 diabetes mellitus with diabetic chronic kidney disease; I12.9 Hypertensive chronic kidney disease with stage 1 through stage 4 chronic kidney disease, or unspecified chronic kidney disease; E66.01 Morbid (severe) obesity due to excess calories; G47.33 Obstructive sleep apnea (adult) (pediatric); I25.2 Old myocardial infarction; Z82.49 Family history of ischemic heart disease and other diseases of the circulatory system; Z85.41 Personal history of malignant neoplasm of cervix uteri; Z79.899 Other long term (current) drug therapy; Z88.6 Allergy status to analgesic agent; Z79.84 Long term (current) use of oral hypoglycemic drugs; Z79.02 Long term (current) use of antithrombotics/antiplatelets; Z88.0 Allergy status to penicillin; Z88.8 Allergy status to other drugs, medicaments and biological substances; Z90.49 Acquired absence of other specified parts of digestive tract; Z90.710 Acquired absence of both cervix and uterus
CPT/HCPCS: 36415; 36430; 43239; 70450; 70486; 71045; 72125; 80048; 80053; 80061; 81001; 82550; 82728; 82948; 83036; 83540; 83550; 83605; 83735; 84100; 84132; 84145; 84146; 84443; 84466; 84484; 85025; 85027; 85610; 85730; 86885; 86900; 86901; 86920; 87040; 87077; 87081; 87088; 87186; 88305; 88342; 90686; 93005; 93306; 94640; 94760; 95816; 97110; 97161; 97530; 99152; 99285; A4615; A4620; A6212; A6213; A6449; G0378; J0696; J1644; J1815; J2250; J2470; J3010; J3360; J3480; J3490; J7030; J7040; J8597; P9016